=== PATIENT | male | born 1990 | race Caucasian/White ===

== ENCOUNTER 2023-04-04 08:43 | Emergency (ER) | payer OTHER, SELFPAY ==
[2023-04-04 08:50] VITALS: BP 140/78; PULSE 53; RESP 16; TEMP 36.1; O2SAT 97
--- NOTE | 2023-04-04 09:14 | ED.EYEPROB ---
HPI - Eye Problem General Chief complaint: Eye Problems Stated complaint: right eye History of Present Illness HPI Narrative: Patient presents with swelling under his right eye. Patient states he was playing golf yesterday and is not recalling being bit by any insect but does state that he has itchy skin under his right eye and has been itching it frequently. No vision problems no eye pain no drainage from the area. Related Data Allergies Allergy/AdvReac Type Severity Reaction Status Date / Time No Known Allergies Allergy Verified 04/04/23 09:11 Review of Systems Review of Systems: CONSTITUTIONAL: Denies fever, chills, or sweats. EYES: Denies visual changes, redness, or discharge. ENT: Denies rhinorrhea, congestion, sore throat, or otalgia. CARDIOVASCULAR: Denies chest pain, palpitations, or edema. RESPIRATORY: Denies cough or dyspnea. GASTROINTESTINAL: Denies abdominal pain, nausea, vomiting, or diarrhea. GENITOURINARY: Denies dysuria or hematuria. SKIN: Denies rash or itching. MUSCULOSKELETAL: Denies back pain, joint pain, or myalgia. NEUROLOGIC: Denies headache, numbness, or weakness. PSYCHIATRIC: Denies anxiety or depression. PMFSH Comments At time of signature, agree with nursing past medical, surgical, social and family history. There is no relevant family history pertinent to the presenting complaint Exam Narrative: GENERAL: Well-appearing, well-nourished, and in no acute distress. HEAD: Normocephalic, atraumatic. EYES: PERRLA and EOMI. ENT: Nares clear, no rhinorrhea or epistaxis. Mucous membranes moist. NECK: Supple. CHEST: Clear to auscultation. No respiratory distress. HEART: Regular rate and rhythm. No murmur heard. Normal peripheral pulses. ABDOMEN: Soft, nontender, nondistended, normal active bowel sounds. EXTREMITIES: Normal range of motion. No edema. SKIN: Warm, dry, no rash. NEURO: No focal deficits. Alert and oriented x3. [place] Coma Scale Eye Opening: Spontaneous 4 [place] Coma Scale Motor: Obeys Commands 6 [place] Coma Scale Verbal: Oriented 5 [place]hu Coma Scale Total 15 Eyes: Conjunctivae: conjunctivae normal Pupils: Equal, round and reactive pupils present EOM: EOMs intact bilaterally Other: swelling below right eye consistent with insect bite no drainage no streaking Course Course Level of Care: Express Care Visit Vital Signs Vital signs: Vital Signs Temperature 36.1 C L 04/04/23 08:50 Pulse Rate 53 L 04/04/23 08:50 Respiratory Rate 16 04/04/23 08:50 Blood Pressure 140/78 04/04/23 08:50 Pulse Oximetry 97 04/04/23 08:50 Oxygen Delivery Room Air 04/04/23 08:50 Temperature 36.1 C L 04/04/23 08:50 Pulse Rate 53 L 04/04/23 08:50 Respiratory Rate 16 04/04/23 08:50 Blood Pressure 140/78 04/04/23 08:50 Pulse Oximetry 97 04/04/23 08:50 Oxygen Delivery Room Air 04/04/23 08:50 Discharge Plan Discharge Clinical Impression: Swelling of lower eyelid, Cellulitis, Insect bite Patient Disposition: Home, Self-Care Condition: Stable Instructions: Antibiotic Form, Periorbital Cellulitis (ED) Additional Instructions: Medication as prescribed Follow-up with primary care provider in 3-4 days for re-evaluation If any new or worsening symptoms please go to ER immediately further evaluation treatment Prescriptions: New prednisone 20 mg tablet 40 mg PO DAILY 5 Days Qty: 10 0RF cephalexin 500 mg capsule 500 mg PO Q8H 7 Days Qty: 21 0RF erythromycin 5 mg/gram (0.5 %) ointment 1 applic RIGHT EYE Q8H 7 Days Qty: 3.5 0RF Follow-up/Referrals: PHYSICIAN NOT ON STAFF,NONSTAFF [Primary Care Provider] -
== END 2023-04-04 09:22 | disposition home or self-care (01) ==
PROVIDERS: Emergency Provider Nurse Practitioner Family
DX: S00.86XA Insect bite (nonvenomous) of other part of head, initial encounter (principal); H00.032 Abscess of right lower eyelid; W57.XXXA Bitten or stung by nonvenomous insect and other nonvenomous arthropods, initial encounter
CPT/HCPCS: 99203; G0463